=== PATIENT | female | born 1985 | race Caucasian/White ===

== ENCOUNTER → 2017-12-03 16:21 | Outpatient (CLI) | payer BC, SELFPAY ==
--- NOTE | 2017-12-03 16:24 | MR_ITS ---
MR knee LT wo con Ordering Physician: William Alex Patient Age: 32 years: Female HISTORY: ITS.REASON: LT KNEE/POSSIBLE MENISCUS TEAR Left knee pain 6 weeks patient stated and heard pop and felt pain at knee. Pain is medial side of patella. TECHNIQUE: Multiplanar multisequence imaging performed on 15 T jacqueline MR COMPARISON :Plain films of the , left knee 11/18/2017 FINDINGS Medial meniscal tear. Linear high signal tear passes through posterior horn & continues to the mid body of medial meniscus. This horizontal oblique tear mainly extends to the inferior meniscal surface just adjacent to the free margin as seen best on sagittal image 7 at the posterior horn.. This linear tear then extends to the base of the posterior horn medial meniscus seen on this image.. No displaced meniscus or meniscal fragment is seen.. The anterior horn medial meniscus appears intact. The medial compartment is fairly well maintained. Tiny area of increased signal at the medial margin of the medial tibial plateau with perhaps some scant chondral thinning here. Equivocal. The lateral meniscus is intact. No tear. The cartilage at the lateral compartment is fairly well maintained with only questionable slight thinning femoral condyle just superior to the anterior horn Patellofemoral joint cartilage well-maintained there may be some subtle chondral edema questioned along the medial aspect of patellar cartilage but this is equivocal. Unimpressive. . Normal patellofemoral relationships. Kxtos-rm-tvysrixe joint effusion most evident at suprapatellar bursa. The ACL and PCL are intact. The quadriceps tendon and patellar tendon intact. Medial and lateral collateral ligaments intact. IMPRESSION: Medial meniscal tear is the primary finding & abnormality Small to moderate joint effusion Question perhaps very Minor chondral edema/contusion at medial patella. Questionable feature
== END ==
PROVIDERS: Family Provider Family Medicine; PCP Emergency Medicine; Visit Provider Orthopaedic Surgery Adult Reconstructive Orthopaedic Surgery
DX: M25.562 Pain in left knee (principal)
CPT/HCPCS: 73721

== ENCOUNTER → 2018-02-01 13:41 | Outpatient (REF) | payer BC, SELFPAY ==
[2018-02-02 18:12] LABS: Measles Antibodies, IgG >300.0 AU/mL (Immune >29.9); Mumps Abs, IgG 82.5 AU/mL (Immune >10.9); Rubella Antibodies, IgG 8.49 index (Immune >0.99); Varicella Zoster IgG 1495 index (Immune >165)
[2018-02-03 18:29] LABS: Hep B Surface Ab, Qual Non Reactive (.)
[2018-02-05 09:02] LABS: Varicella-Zoster Ab, IgM <0.91 index (0.00-0.90)
== END ==
LOC: LAB 13:41
PROVIDERS: Visit Provider Emergency Medicine
DX: Z01.84 Encounter for antibody response examination (principal)
CPT/HCPCS: 86706; 86735; 86762; 86765; 86787

== ENCOUNTER → 2019-03-28 13:46 | Outpatient (CLI) | payer BC, SELFPAY | PROVIDERS: Visit Provider Nurse Practitioner Family | DX: R35.0 Frequency of micturition (principal); R82.90 Unspecified abnormal findings in urine | CPT/HCPCS: 87086; 87088; 87186 ==

== ENCOUNTER → 2020-02-05 13:59 | Outpatient (CLI) | payer BC, SELFPAY | PROVIDERS: Visit Provider Physician Assistant | DX: R30.9 Painful micturition, unspecified (principal) | CPT/HCPCS: 87086; 87088; 87186 ==

== ENCOUNTER 2020-03-29 19:41 | Emergency (ER) | payer BC, SELFPAY ==
[2020-03-29 19:58] VITALS: BP 125/91; PULSE 76; RESP 19; TEMP 36.8; O2SAT 100; BMI 22.6
[2020-03-29 20:08] LABS: Apearance,Urine Clear (Clear); Blood, Urine 3+ (Negative); Color,Urine Dark Yellow (Yellow); Glucose,Urine (UA) Negative (Negative); Ketones,Urine Negative (Negative); PH,Urine 5.5 (5.0-8.5); Protein,Urine 1+ (Negative); Specific Gravity, Urine 1.005 (1.005-1.030)
[2020-03-29 20:09] LABS: Bilirubin,Urine Negative (Negative); UTC Leukocyte Esterase,Urine 3+ (Negative); UTC Nitrate,Urine Negative (Negative); Urobilinogen,Urine 0.2 EU/dl (0.2)
[2020-03-29 20:30] VITALS: BP 125/91; PULSE 76; RESP 19; TEMP 36.8; O2SAT 100
--- NOTE | 2020-03-29 20:35 | HMH.EDUTC ---
[facility] [place] Impression: UTI (urinary tract infection) Qualifiers: Urinary tract infection type: site unspecified Hematuria presence: with hematuria Qualified Code(s): N39.0 - Urinary tract infection, site not specified Disposition: Home, Self-Care Condition on Discharge: Good Instructions: Urinary Tract Infection Additional Instructions: Drink plenty of fluids. Take tylenol or ibuprofen for pain or fever. Take the medications as directed. Follow up with your regular doctor. GO TO THE ER FOR ANY WORSENING SYMPTOMS The pyridium will make your urine turn orange, this is an expected side effect. It will stain your clothes if it comes into contact with them. Prescriptions: Ondansetron [Zofran 4mg ODT] 4 mg PO Q8HP PRN #10 tab.rapdis PRN Reason: Nausea [facility] Sulfamethoxazole/Trimethoprim [Bactrim DS tablet] 1 each PO BID 7 Days #14 tab Transmission Status: Received by [facility] Phenazopyridine HCl [Pyridium 200mg Tablet] 200 pow PO TID #6 tab Transmission Status: Received by [facility] Referrals: Michael Hernandez MD [Primary Care Provider] - Time of Disposition: 20:39 Medical Decision Making - Medical Records Medical records reviewed: No: I reviewed the patient's medical records. - Mario Inquiry Pt receiving controlled substance: No Vital Signs: 03/29/20 19:58 03/29/20 20:30 Temperature 98.2 F 98.2 F Temperature Source Oral Pulse Rate 76 Pulse Rate [Right Brachial] 76 Respiratory Rate 19 19 Blood Pressure 125/91 H Blood Pressure [Right Arm] 125/91 H Blood Pressure Mean [Right Arm] 102 Blood Pressure Source [Right Arm] Automatic Cuff Blood Pressure Position [Right Arm] Sitting 02 Sat by Pulse Oximetry 100 Oxygen Delivery Method Room Air - Lab Data Lab results reviewed: Yes: I reviewed the patient's lab results. Lab Results 03/29/20 19:57: Urine Color Dark yellow, Urine Appearance Clear, Urine pH 5.5, Ur Specific Hopkins 1.005, Urine Protein 1+, Urine Glucose (UA) Negative, Urine Ketones Negative, Urine Blood 3+, Urine Nitrate Negative, Urine Bilirubin Negative, Urine Urobilinogen 0.2, Ur Leukocyte Esterase 3+ A Orders (Tests/Meds): ED MEDICATIONS Discontinued Medications Generic Name Dose Route Start Last Admin Trade Name Freq PRN Reason Stop Dose Admin Ondansetron HCl 4 mg 03/29/20 20:38 03/29/20 20:47 Zofran 4mg Odt SL 03/29/20 20:39 4 mg ONCE ONE Administration Trimethoprim/Sulfamethoxazole 1 each 03/29/20 20:38 03/29/20 20:46 Bactrim Ds Tablet PO 03/29/20 20:39 1 each ONCE ONE Administration Protocol ORDERS Category Date Time Status Urine Culture Stat Micro 03/29/20 19:[address] [facility] [place] - General Stated complaint: Possible UTI Time Seen by Provider: 03/29/20 20:00 Mode of Arrival: Ambulatory Source of Information: Patient Limitations: No Limitations Description of Symptoms (Recalled from Triage Doc. by RN): PATIENT C/O RIGHT FLANK PAIN, FREQUENT URINATION, AND HEMATURIA SINCE SUNDAY HEENT Symptoms (Recalled from RN notes): No Resp Symptoms (Recalled from RN notes): No Skin Symptoms (Recalled from RN notes): No MS Symptoms (Recalled from RN notes): No Functional Status (Recalled from RN notes): WNL - History of Present Illness Provider Complaint: She c/o dysuria and low back pain for 1 day. - Related Data Home Medications Medication Instructions Recorded Confirmed levonorgestrel 20 mcg/24 hours (5 INTRAUTERI each 01/21/19 02/05/20 yrs) 52 mg intrauterine device Previous Rx's Medication Instructions Recorded ciprofloxacin HCl 500 mg tablet 500 mg PO BID 5 Days #10 tab 02/05/20 Ondansetron [Zofran 4mg ODT] 4 mg PO Q8HP PRN #10 tab.rapdis 03/29/20 Phenazopyridine HCl [Pyridium 200 pow PO TID #6 tab 03/29/20 200mg Tablet] Sulfamethoxazole/Trimethoprim 1 each PO BID 7 Days #14 tab 03/29
== END 2020-03-29 20:50 | disposition home or self-care (01) ==
PROVIDERS: Emergency Provider Nurse Practitioner Family; PCP Emergency Medicine
DX: N30.01 Acute cystitis with hematuria (principal); F33.1 Major depressive disorder, recurrent, moderate; Z88.0 Allergy status to penicillin
CPT/HCPCS: 81003; 87086; 87088; 87186; 99201

== ENCOUNTER 2020-04-06 12:56 | Emergency (ER) | payer BC, SELFPAY ==
[2020-04-06 13:09] VITALS: BP 141/88; PULSE 76; RESP 19; TEMP 36.8; O2SAT 99; BMI 22.6
--- NOTE | 2020-04-06 13:21 | HMH.EDUTC ---
[facility] [place]: Muscle spasms of neck Disposition: Home, Self-Care Condition on Discharge: Good Instructions: DI for Muscle Spasm, Cyclobenzaprine, Etodolac Additional Instructions: Make sure that you are drinking plenty of water to flush out kidneys *Take medication as prescribed *Etodolac karla 6 hours with meal as needed for pain/inflammation *Not additional anti-inflammatory like motrin, aleve, advil with the above amount of Etodolac You can still take Tylenol every 4 hours as needed if you need something else for pain *Ice 20 minutes every 2 hours for the first 48 hours after the initial injury followed by moist heat every 20 minutes 3-4 times a day to affected area *Muscle relaxer every 8 hours as needed for muscle spasms but remember, it WILL cause drowsiness You cannot take it and drive, operate machinery or care for small children. *Keep this area active, no movement leads to more stiffness, However take it easy and avoid heavy lifting pushing or pulling *Follow up with you family doctor if no improvement for further treatment Prescriptions: Etodolac [Etodolac 200mg Cap*] 200 mg PO Q6H PRN #20 cap PRN Reason: Moderate Pain Transmission Status: Pending to [facility] Cyclobenzaprine HCl [Flexeril 10mg tablet] 10 mg PO TID PRN #15 tab PRN Reason: Muscle Spasm Transmission Status: Pending to [facility] Referrals: Michael Hernandez MD [Primary Care Provider] - As needed Time of Disposition: 13:27 Medical Decision Making - Mario Inquiry Pt receiving controlled substance: No Mario was queried for this patient: No Vital Signs: 04/06/20 13:09 Temperature 98.2 F Temperature Source Oral Pulse Rate [Right Brachial] 76 Respiratory Rate 19 Blood Pressure [Left Arm] 141/88 H Blood Pressure Mean [Left Arm] 105 Blood Pressure Source [Left Arm] Automatic Cuff Blood Pressure Position [Left Arm] Sitting 02 Sat by Pulse Oximetry 99 Oxygen Delivery Method Room Air - Lab Data Lab results reviewed: Yes: I reviewed the patient's lab results. [facility] [place] - General Stated complaint: uti neck pain Time Seen by Provider: 04/06/20 13:21 Mode of Arrival: Ambulatory Source of Information: Patient Limitations: No Limitations Description of Symptoms (Recalled from Triage Doc. by RN): PATIENT C/O NECK PAIN X 4 DAYS. ALSO STATES SHE WAS RECENTLY TREATED FOR A UTI WITH BACTRIM, HOWEVER SHE REPORTS CONTINUING PRESSURE WITH URINATION. HEENT Symptoms (Recalled from RN notes): No Resp Symptoms (Recalled from RN notes): No Skin Symptoms (Recalled from RN notes): No MS Symptoms (Recalled from RN notes): Yes Functional Status (Recalled from RN notes): WNL - History of Present Illness Provider Complaint: Patient states that she just finished medication for UTI and she is still having pressure at times when she urinates and wanted to have her urine rechecked States that also she has been having muscle spasms in her neck area from bending over and studing and now is unable to move head well - Related Data Home Medications Medication Instructions Recorded Confirmed levonorgestrel 20 mcg/24 hours (5 INTRAUTERI each 01/21/19 02/05/20 yrs) 52 mg intrauterine device Previous Rx's Medication Instructions Recorded ciprofloxacin HCl 500 mg tablet 500 mg PO BID 5 Days #10 tab 02/05/20 Ondansetron [Zofran 4mg ODT] 4 mg PO Q8HP PRN #10 tab.rapdis 03/29/20 Phenazopyridine HCl [Pyridium 200 pow PO TID #6 tab 03/29/20 200mg Tablet] Sulfamethoxazole/Trimethoprim 1 each PO BID 7 Days #14 tab 03/29/20 [Bactrim DS tablet] Cyclobenzaprine HCl [Flexeril 10mg 10 mg PO TID PRN #15 tab 04/06/20 tablet] Etodolac [Etodolac 200mg Cap*] 200 mg PO Q6H PRN #20 cap 04/06/20 Allergies Allergy/AdvReac Type Severity Reaction Status Date / Time hydroxyzine [From Atarax] Allergy Intermediate I-HIVES Verified 02/05/20 10:16 penicillin G [PENICILLIN G] Allergy Intermediate I-HIVES Verifie
[2020-04-06 13:30] LABS: UTC Pregnancy Test, Urine Negative (Negative)
[2020-04-06 13:30] LABS: Apearance,Urine Clear (Clear); Color,Urine Yellow (Yellow); PH,Urine 6.5 (5.0-8.5)
[2020-04-06 13:31] LABS: Bilirubin,Urine Negative (Negative); Blood, Urine Negative (Negative); Glucose,Urine (UA) Negative (Negative); Ketones,Urine Negative (Negative); Protein,Urine Negative (Negative); UTC Leukocyte Esterase,Urine Negative (Negative); UTC Nitrate,Urine Negative (Negative); Urobilinogen,Urine 0.2 EU/dl (0.2)
[2020-04-06 13:47] VITALS: BP 141/88; PULSE 76; RESP 19; TEMP 36.8; O2SAT 99
== END 2020-04-06 13:50 | disposition home or self-care (01) ==
PROVIDERS: Emergency Provider Nurse Practitioner; PCP Emergency Medicine
DX: M62.838 Other muscle spasm (principal); M54.2 Cervicalgia; F33.1 Major depressive disorder, recurrent, moderate; Z88.0 Allergy status to penicillin; Z88.8 Allergy status to other drugs, medicaments and biological substances
CPT/HCPCS: 81003; 81025; 96372; 99202

== ENCOUNTER → 2020-05-17 19:03 | Outpatient (CLI) | payer OTHER, SELFPAY | PROVIDERS: PCP Physician Assistant; Visit Provider Physician Assistant | DX: Z03.818 Encounter for observation for suspected exposure to other biological agents ruled out (principal) | CPT/HCPCS: U0003 ==

== ENCOUNTER 2020-06-21 06:46 | Emergency (ER) | payer OTHER, SELFPAY ==
--- NOTE | 2020-06-21 06:41 | ECG_ITS ---
APPROVED REPORT Exam: Resting ECG HR:75 bpm ECG Measurements Heart Rate 75 AXES NM 120 P 73 QRSd 80 QRS -75 QT 408 T 56 QTc 455 Conclusion Normal sinus rhythm Left axis deviation Abnormal ECG Electronically signed by : Bandar Combs, 06/21/2020 21:07:18
[2020-06-21 06:46] VITALS: BP 111/77; PULSE 93; RESP 16; TEMP 36.7; O2SAT 100; BMI 24.2
--- NOTE | 2020-06-21 06:51 | HMH.EDSYNC ---
ED Disposition Clinical Impression: Near syncope Urinary tract infection Qualifiers: Encounter type: initial encounter Disposition: Still a Patient Condition on Discharge: Undetermined Instructions: DI for Syncope in Adults (Fainting), Urinary Tract Infection Prescriptions: Cefdinir [Omnicef 300mg Capsule] 300 mg PO BID #20 cap Prescription Printed Referrals: PCP,No [Primary Care Provider] - - Critical Care Critical Care Time: No Attestation: On , the high probability of a clinically significant, sudden or life threatening deterioration of the following system(s) required my full and direct attention, intervention and personal management. The time I documented below is in addition to time spent performing reported procedures but includes the following listed in this critical care notation. Medical Decision Making - Medical Records Medical records reviewed: Yes: I reviewed the patient's medical records. - Mario Inquiry Pt receiving controlled substance: No Vital Signs: 06/21/20 06:46 06/21/20 07:00 06/21/20 07:30 Temperature 98.1 F Temperature Source Oral Pulse Rate [Left Radial] 93 H 60 61 Respiratory Rate 16 13 10 L Blood Pressure [Right Arm] 111/77 102/76 L 99/77 L Blood Pressure Mean [Right Arm] 88 84 84 Blood Pressure Source [Right Arm] Automatic Cuff Automatic Cuff Blood Pressure Position [Right Arm] Supine Sitting 02 Sat by Pulse Oximetry 100 100 100 Oxygen Delivery Method Room Air Room Air Room Air 06/21/20 07:45 Temperature Temperature Source Pulse Rate [Left Radial] 93 H Respiratory Rate 15 Blood Pressure [Right Arm] 114/81 Blood Pressure Mean [Right Arm] 92 Blood Pressure Source [Right Arm] Automatic Cuff Blood Pressure Position [Right Arm] Sitting 02 Sat by Pulse Oximetry 100 Oxygen Delivery Method Room Air - Lab Data Lab Results 06/21/20 06:45: WBC 8.9, RBC 5.20, Hgb 16.0, Hct 46.5, MCV 89.5, MCH 30.8, MCHC 34.5, RDW 13.0, Plt Count 368, MPV 9.8, Neut % (Auto) 56.7, Lymph % (Auto) 32.9, Lucas % (Auto) 6.5, Eos % (Auto) 3.4, Baso % (Auto) 0.5, Neut # (Auto) 5.0, Lymph # (Auto) 2.9, Lucas # (Auto) 0.6, Eos # (Auto) 0.3, Baso # (Auto) 0.1 06/21/20 06:45: Sodium 137, Potassium 2.9 L*, Chloride 102, Carbon Dioxide 24, Anion Gap Not Reportable, BUN 13, Creatinine 0.90, Estimated Creat Clear 96, Estimated GFR 73, Est GFR ( Amer) 88, Glucose 127 H, Calcium 9.4, Total Bilirubin 1.2, AST 25, ALT 20, Alkaline Phosphatase 49, Total Protein 7.3, Albumin 4.6, Globulin 2.7, Albumin/Globulin Ratio 1.7 06/21/20 07:15: Urine Color Dk yellow, Urine Appearance Sl cloudy, Urine pH 6.0, Ur Specific Jermyn >= 1.030, Urine Protein Trace, Urine Glucose (UA) Negative, Urine Ketones Trace, Urine Blood Negative, Urine Nitrate Positive, Urine Bilirubin Negative, Urine Urobilinogen 1.0, Ur Leukocyte Esterase Negative, Urine RBC Occasional, Urine WBC 3-5, Ur Squamous Epith Cells 3-5, Urine Bacteria Trace 06/21/20 07:15: Urine HCG, Qual Negative Result diagrams: 06/21/20 06:45 06/21/20 06:45 Orders (Tests/Meds): ED MEDICATIONS Generic Name Dose Route Start Last Admin Trade Name Freq PRN Reason Stop Dose Admin Lactated Ringer's 1,000 mls @ 999 mls/hr 06/21/20 07:00 06/21/20 06:59 Lactated Ringer's 1000 Ml Bag IV 06/21/20 08:00 999 mls/hr .Q1H1M DIANE Administration Discontinued Medications Generic Name Dose Route Start Last Admin Trade Name Freq PRN Reason Stop Dose Admin Ibuprofen 400 mg 06/21/20 06:58 06/21/20 07:02 Ibuprofen 400 Mg Tablet PO 06/21/20 06:59 400 mg ONCE ONE Administration Ondansetron HCl 4 mg 06/21/20 06:56 06/21/20 06:58 Ondansetron 4mg/2ml Vial IV 06/21/20 06:57 4 mg ONCE ONE Administration Potassium Chloride 40 meq 06/21/20 07:27 06/21/20 07:34 Potassium Chloride 20meq Tab PO 06/21/20 07:28 40 meq ONCE ONE Administration ORDERS Category Date Time Status Chest XR -- portable [XR chest portable] Stat Exa
--- NOTE | 2020-06-21 06:55 | XR_ITS ---
PROCEDURE: XR CHEST PORTABLE CLINICAL HISTORY: syncope Shortness of breath, syncope COMPARISON: No exams were available for comparison FINDINGS: The cardiomediastinal silhouette and pulmonary vascularity are within normal limits. The lungs are clear without infiltrates, suspicious nodules, or pleural effusions. Mild upper thoracic scoliosis convex left and lower thoracic scoliosis convex right. IMPRESSION: No acute findings. Dictated by: Tevin Lopes MD 06/21/2020 08:38 Tevin Lopes MD in [place] 06/21/2020 08:38
--- NOTE | 2020-06-21 06:56 | US_ITS ---
PROCEDURE: US TRANSVAGINAL CLINICAL INDICATION: ovarian torsion evaluation, abdominal pain, pelvic pain, syncope COMPARISON: No exams were available for comparison FINDINGS: UTERUS: 9cm x 6cmx 5cm with a combined endometrial thickness of 4.9mm LEFT OVARY: 4aqu6exp3.5cm with a volume of 18.4ml. RIGHT OVARY: [id number] with a volume of 15.7ml. There is an IUD in place which appears in satisfactory position. There are multiple bilateral ovarian follicles. There is bilateral ovarian blood flow. No cul-de-sac fluid. Suspected 2 cm left ovarian hemorrhagic cyst IMPRESSION: Bilateral ovarian blood flow. No evidence of torsion. 2 cm hemorrhagic left ovarian cyst IUD in place. Dictated by: Tevin Lopes MD 06/21/2020 09:11 Tevin Lopes MD in [place] 06/21/2020 09:11
[2020-06-21 07:00] VITALS: BP 102/76; PULSE 60; RESP 13; O2SAT 100
[2020-06-21 07:08] LABS: Basophils # 0.1 K/mm3 (0-0.2); Basophils % 0.5 % (0.1-2.0); Eosinophils # 0.3 K/mm3 (0.0-0.4); Eosinophils % 3.4 % (0.1-12.0); Hematocrit 46.5 % (37.0-47.0); Lymphocytes # 2.9 K/mm3 (0.7-4.5); Lymphocytes % 32.9 % (10-50); Mean Corpuscular HGB Conc 34.5 g/dL (31.8-35.4); Mean Corpuscular Hemoglobin 30.8 pg (27.0-31.2); Mean Corpuscular Volume 89.5 fl (81-99); Mean Platelet Volume 9.8 fl (7.4-10.4); Monocytes # 0.6 K/mm3 (0.1-1.0); Monocytes % 6.5 % (1.7-9.3); Neutrophils % 56.7 % (37.0-80.0); Platelet Count 368 K/mm3 (142-424); White Blood Count 8.9 K/mm3 (4.8-10.8)
[2020-06-21 07:17] LABS: Chloride 102 mmol/L (98-107); Sodium 137 mmol/L (136-145)
[2020-06-21 07:20] LABS: Alanine Aminotransferase 20 U/L (12-78); Albumin Level 4.6 g/dl (3.5-5.0); Alkaline Phosphatase 49 U/L (38-126); Aspartate Amino Transferase 25 U/L (14-36); Bilirubin,Total 1.2 mg/dl (0.2-1.3); Blood Urea Nitrogen 13 mg/dl (7-17); Carbon Dioxide 24 mmol/L (22.0-30.0); Creatinine Clearance Estimated 96 mL/min (50-200); Estimated Glomerular Filt Rate 73 ml/min (>60); GFR (African American) 88 ML/MIN (>60)
[2020-06-21 07:21] LABS: Albumin/Globulin Ratio 1.7 (1.1-1.8); Calcium 9.4 mg/dl (8.4-10.2); Globulin 2.7 g/dL (1.3-3.2); Glucose 127 mg/dl (74-100); Potassium 2.9 mmoL/L (3.5-5.1); Total Protein,Serum 7.3 g/dl (6.3-8.2)
--- NOTE | 2020-06-21 07:21 | PC.NURSE ---
notified ER of critical potassium
[2020-06-21 07:27] LABS: Microscopic, Urine URINE MICROSCOPIC (MICROSCOPIC)
[2020-06-21 07:30] VITALS: BP 99/77; PULSE 61; RESP 10; O2SAT 100
[2020-06-21 07:34] LABS: Appearance,Urine SL CLOUDY (Clear); Blood, Urine Negative (Negative); Color,Urine DK YELLOW (Yellow); Glucose,Urine (UA) Negative (Negative); Ketones,Urine TRACE (Negative); Leukocyte Esterase,Urine Negative (Negative); Nitrate,Urine POSITIVE (Negative); Protein,Urine TRACE (Negative); Specific Gravity, Urine >= 1.030 (1.005-1.030)
[2020-06-21 07:44] LABS: Bilirubin,Urine Negative (Negative); Urine Pregnancy, HCG Qual. Negative (Negative)
[2020-06-21 07:45] VITALS: BP 114/81; PULSE 93; RESP 15; O2SAT 100
--- NOTE | 2020-06-21 07:46 | PC.NURSE ---
pt going to radiology
[2020-06-21 07:54] LABS: Bacteria,Urine Trace /lpf; RBC,Urine Occasional #/hpf (0-3)
--- NOTE | 2020-06-21 08:08 | PC.NURSE ---
pt back from radiology
[2020-06-21 08:09] VITALS: BP 120/76; PULSE 75; RESP 19; O2SAT 99
[2020-06-21 08:30] VITALS: BP 106/68; BP 120/62; PULSE 69; PULSE 72; RESP 15; RESP 16; TEMP 36.6; O2SAT 100; O2SAT 98
== END 2020-06-21 08:35 | disposition still patient (30) ==
PROVIDERS: Emergency Provider Student in an Organized Health Care Education/Training Program
DX: R55 Syncope and collapse (principal); N39.0 Urinary tract infection, site not specified; F33.1 Major depressive disorder, recurrent, moderate; Z88.0 Allergy status to penicillin
CPT/HCPCS: 71045; 76830; 80053; 81001; 81025; 85025; 93005; 96365; 96375; 99284; J2405

== ENCOUNTER 2020-12-06 14:34 | Emergency (ER) | payer OTHER, SELFPAY ==
[2020-12-06 15:03] VITALS: BP 129/75; PULSE 85; RESP 16; TEMP 36.2; O2SAT 96; BMI 22.2
--- NOTE | 2020-12-06 15:15 | HMH.EDUTC ---
[facility] [place] Clinical Impression: Acute bronchitis Qualifiers: Bronchitis organism: unspecified organism Qualified Code(s): J20.9 - Acute bronchitis, unspecified Disposition: Home, Self-Care Condition on Discharge: Good Instructions: Acute Bronchitis, DI for Acute Bronchitis Additional Instructions: Drink plenty of fluids. Take tylenol for pain or fever. Return if you begin to have difficulty breathing. Follow up with your regular doctor. GO TO THE ER FOR ANY WORSENING SYMPTOMS Prescriptions: Promethazine/Dextromethorphan [Promethazine-Dm Syrup] 5 ml PO Q6HP PRN #240 syrup PRN Reason: Cough Transmission Status: Received by [facility] predniSONE [Prednisone 20mg Tab] 20 mg PO BID 4 Days #8 tab Transmission Status: Received by [facility] Azithromycin [Z-Bridger 250mg Tab*] 250 mg PO UD DOSE PK #6 tab Transmission Status: Received by [facility] Referrals: Michael Hernandez MD [Primary Care Provider] - Forms: Work/School Release Time of Disposition: 15:27 Medical Decision Making - Medical Records Medical records reviewed: No: I reviewed the patient's medical records. - Mario Inquiry Pt receiving controlled substance: No Vital Signs: 12/06/20 15:03 12/06/20 15:32 Temperature 97.2 F L 97.3 F L Temperature Source Tympanic Tympanic Pulse Rate 85 Pulse Rate [Right] 85 Respiratory Rate 16 23 Blood Pressure 131/78 Blood Pressure [Right Arm] 129/75 Blood Pressure Mean [Right Arm] 93 Blood Pressure Source [Right Arm] Automatic Cuff Blood Pressure Position [Right Arm] Sitting 02 Sat by Pulse Oximetry 96 - Lab Data Lab Results 12/06/20 15:12: Strep Scn Rapid [facility] Negative Orders (Tests/Meds): ORDERS Category Date Time Status Strep Screen Confirmation Stat Micro 12/06/20 15:12 Received [facility] [place] HPI - General Stated complaint: congestion, fatigue Time Seen by Provider: 12/06/20 15:15 Mode of Arrival: Ambulatory Source of Information: Patient Limitations: No Limitations Description of Symptoms (Recalled from Triage Doc. by RN): pt c/o chest congestion, productive cough with green sputum, sore throat and fatigued. 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 pt does not want covid test. HEENT Symptoms (Recalled from RN notes): Yes (sore throat) Resp Symptoms (Recalled from RN notes): Yes (productive cough with green sputum.) Skin Symptoms (Recalled from RN notes): No MS Symptoms (Recalled from RN notes): No Functional Status (Recalled from RN notes): body aches and lethargy - History of Present Illness Provider Complaint: She states that she has had a sore throat and chest congestion for the past 2 days. She denies any fever/chills/body aches. She does not believe she has been exposed to covid. She does not want a covid test today. - Related Data Home Medications Medication Instructions Recorded Confirmed levonorgestrel 20 mcg/24 hours (6 INTRAUTERI each 01/21/19 09/13/20 yrs) 52 mg intrauterine device Previous Rx's Medication Instructions Recorded ondansetron 8 mg disintegrating 8 mg PO Q8H PRN 5 Days #20 tab 09/13/20 tablet Azithromycin [Z-Bridger 250mg Tab*] 250 mg PO UD DOSE PK #6 tab 12/06/20 Promethazine/Dextromethorphan 5 ml PO Q6HP PRN #240 syrup 12/06/20 [Promethazine-Dm Syrup] predniSONE [Prednisone 20mg 20 mg PO BID 4 Days #8 tab 12/06/20 Tab] Allergies Allergy/AdvReac Type Severity Reaction Status Date / Time hydroxyzine [From Atarax] Allergy Intermediate I-HIVES Verified 12/06/20 15:13 penicillin G [PENICILLIN G] Allergy Intermediate I-HIVES Verified 12/06/20 15:13 - Worker's Comp Is this a Worker's Comp case?: No [facility] History - Hepatitis A Screen Drug use history?: No High risk sexual behaviors?: No History of sexually transmitted infection?: No Currently employed?: No Childcare worker?: No Do you have indoor plumbing?: Yes Do you
[2020-12-06 15:31] LABS: UTC Strep Screen (Rapid) Negative (Negative)
[2020-12-06 15:32] VITALS: BP 131/78; PULSE 85; RESP 23; TEMP 36.3
== END 2020-12-06 15:33 | disposition home or self-care (01) ==
PROVIDERS: Emergency Provider Nurse Practitioner Family; PCP Emergency Medicine
DX: J20.9 Acute bronchitis, unspecified (principal)
CPT/HCPCS: 87880; 99202; G0463

== ENCOUNTER 2020-12-27 09:00 | Emergency (ER) | payer OTHER, SELFPAY ==
[2020-12-27 09:00] VITALS: BP 125/83; PULSE 89; RESP 19; TEMP 36.8; O2SAT 98; BMI 22.6
--- NOTE | 2020-12-27 09:05 | XR_ITS ---
PROCEDURE: XR KNEE RT 3V CLINICAL INDICATION: pain COMPARISON: CR [id number] XR knee LT 3V from 11/18/2017 FINDINGS: No fracture or dislocation. No lytic or blastic change. There is normal mineralization. The joint spaces are well-preserved. No significant degenerative/arthritic changes. No erosive changes evident. Other findings:None. IMPRESSION: No acute findings. Dictated by: Tevin Lopes MD 12/27/2020 10:12 Tevin Lopes MD in [place] 12/27/2020 10:12
--- NOTE | 2020-12-27 09:32 | HMH.EDUTC ---
[facility] [place] Clinical Impression: Knee strain Qualifiers: Encounter type: initial encounter Laterality: right Qualified Code(s): S86.911A - Strain of unspecified muscle(s) and tendon(s) at lower leg level, right leg, initial encounter Disposition: Home, Self-Care Condition on Discharge: Good Instructions: How to Use Crutches, How To Perform RICE (Rest, Ice, Compress, Elevate), DI for Knee Pain Additional Instructions: *weight bearing as tolerated, Use Crutches to help ambulate and keep weight off knee *RICE, Rest the extremity, Ice 15-20 minutes 3-4 times daily, Compress- wear the abiodun wrap as discussed as much as possible to help reduce swelling and pain, Elevate the extremity when at rest *Abiodun wrap/knee immobilizer is for support and help control swelling, use it except in the shower. Be sure that is not to tight but not to loose either *Elevate when resting *Ibuprofen every 6-8 hours as needed for pain an inflammation. If need something more can take Tylenol in between doses of Ibuprofen to help Immediately follow up with your family doctor for new or worsening of symptoms, or no noticeable improvement over the next 3-5 days Follow up with Dr Joiner in Orthopedics Call office for appointment Return if needed Referrals: Michael Hernandez MD [Primary Care Provider] - Susannah Joiner MD [Physician] - As needed (Call office for appointment) Time of Disposition: 10:18 Medical Decision Making - Mario Inquiry Pt receiving controlled substance: No Mario was queried for this patient: No Vital Signs: 12/27/20 09:00 12/27/20 09:56 Temperature 98.3 F 98.3 F Temperature Source Oral Pulse Rate 89 Pulse Rate [Right Brachial] 89 Respiratory Rate 19 19 Blood Pressure 125/83 Blood Pressure [Right Arm] 125/83 Blood Pressure Mean [Right Arm] 97 Blood Pressure Source [Right Arm] Automatic Cuff Blood Pressure Position [Right Arm] Sitting 02 Sat by Pulse Oximetry 98 Oxygen Delivery Method Room Air - Radiology Data #1 Image(s): Knee Image Reviewed: Yes I have reviewed radiologist's interpretation Preliminary Findings: No Fracture Seen Medical Decision Narrative: Upon placement of Knee immobilizer and crutches patient reports that she has knee immobilizer and crutches at home from previous knee injury and declined placement in the [facility] HPI - General Stated complaint: [id number] injured Rt knee Time Seen by Provider: 12/27/20 09:32 Mode of Arrival: Ambulatory Source of Information: Patient Limitations: No Limitations Description of Symptoms (Recalled from Triage Doc. by RN): PATIENT C/O RIGHT KNEE PAIN AFTER FALLING ON A [id number] YESTERDAY HEENT Symptoms (Recalled from RN notes): No Resp Symptoms (Recalled from RN notes): No Skin Symptoms (Recalled from RN notes): No MS Symptoms (Recalled from RN notes): Yes Functional Status (Recalled from RN notes): WNL - History of Present Illness Provider Complaint: Patient state that she was playing with her kids yesterday on the slip and slide when she went down she bent her legs back States that ever since she has been having pain in the back and on both sides of her right knee with majority of pain in outside of knee area States that she feels like she has pulled or torn something States that she has been able to walk on it but it is uncomfortable - Related Data Home Medications Medication Instructions Recorded Confirmed No Known Home Medications 12/27/20 12/27/20 Allergies Allergy/AdvReac Type Severity Reaction Status Date / Time hydroxyzine [From Atarax] Allergy Intermediate I-HIVES Verified 12/06/20 15:13 penicillin G [PENICILLIN G] Allergy Intermediate I-HIVES Verified 12/06/20 15:13 - Worker's Comp Is this a Worker's Comp case?: No [facility] History - Hepatitis A Screen Drug use history?: No High risk sexual behaviors?: No History of sexually transmitted infection?: No Currently employed?: No Childcare worker?: No Do you have
[2020-12-27 09:56] VITALS: BP 125/83; PULSE 89; RESP 19; TEMP 36.8; O2SAT 98
== END 2020-12-27 10:22 | disposition home or self-care (01) ==
PROVIDERS: Emergency Provider Nurse Practitioner; PCP Emergency Medicine
DX: S86.911A Strain of unspecified muscle(s) and tendon(s) at lower leg level, right leg, initial encounter (principal); W01.0XXA Fall on same level from slipping, tripping and stumbling without subsequent striking against object, initial encounter; Y92.017 Garden or yard in single-family (private) house as the place of occurrence of the external cause; Z88.0 Allergy status to penicillin
CPT/HCPCS: 73562; 99202; G0463

== ENCOUNTER → 2021-01-07 15:01 | Outpatient (CLI) | payer OTHER, SELFPAY ==
--- NOTE | 2021-01-07 15:01 | MR_ITS ---
PROCEDURE: MR KNEE RT WO CON CLINICAL INDICATION: evalaute for mensical tear Medial and lateral knee pain with swelling COMPARISON: CR XR KNEE RT 3V from 12/27/2020 TECHNIQUE: Routine multiplanar multi echo sequences are performed without gadolinium enhancement. FINDINGS: Cruciate ligaments, collateral ligaments, patellar tendon, and quadriceps tendon are intact. The patellar cartilage is preserved. There is a nondisplaced horizontal tear involving the posterior horn of the medial meniscus. This extends to the posterior and medial free edge of the meniscus with questionable extension to the tibial articular surface on 1 image. There is decreased T1 and increased T2 signal involving the proximal tibia laterally and posteriorly. There is a thin linear transverse area of decreased T1 and decreased T2 signal involving the posterior aspect of the proximal tibia laterally at this region of edema suggesting a nondisplaced fracture. IMPRESSION: 1. Horizontal tear posterior horn medial meniscus 2. Bone bruise with small transverse fracture of the proximal tibia posteriorly and laterally. Dictated by: Tevin Lopes MD 01/10/2021 08:37 Tevin Lopes MD in [place] 01/10/2021 08:37
== END ==
PROVIDERS: PCP Emergency Medicine; Visit Provider Orthopaedic Surgery
DX: M25.561 Pain in right knee (principal)
CPT/HCPCS: 73721

== ENCOUNTER → 2021-02-01 23:37 | Outpatient (CLI) | payer OTHER, SELFPAY | PROVIDERS: Visit Provider Orthopaedic Surgery | DX: Z01.818 Encounter for other preprocedural examination (principal) ==

== ENCOUNTER 2021-02-03 07:07 | Day surgery (SDC) | payer OTHER, SELFPAY ==
[2021-01-31 14:48] VITALS: BMI 22.6
[2021-02-03] VITALS (15 sets, daily range): BP systolic 100–127; BP diastolic 54–85; PULSE 67–90; RESP 12–18; TEMP 36.2–43; O2SAT 95–100
--- NOTE | 2021-02-03 09:13 | HMH.ANESCL ---
[facility] Anesthesia Checklist - Patient Identification Patient Identification: Arm Band - Structural Data Admitted From: Home Planned Operative Procedure/s: Right Knee Arthroscopy Consent for Planned Operative Procedure(s) Verified: Yes Verified Documents: Surgical Consent, History and Physical - NPO Status Verified Time NPO: 00:00 - Additional verifications Anesthesia Reactions: No Hx Blood Transfusions: No Blood Transfusion Reaction: No - Airway Assessment C-Spine Mobility Assessed: Yes (mp2) TMJ Mobility Assessed: Yes Dentition: Good Dentition - Neurological Assessment Level of Consciousness: Awake, Alert - Anesthesia Plan Anesthesia Risk discussed: Yes Anesthesia Plan: Verified ASA Class: I Anesthesia Type: General [facility] History I have reviewed the patient's past medical history: Yes Medical History: Reports:: Depression Denies:: Cancer, Diabetes Mellitus Type 1, Diabetes Mellitus Type 2, Internal Pacemaker, MRSA, Seizures *Have you ever received a pneumonia vaccine?: No *Have you received a flu vaccine this season?: Yes Other Medical History: Denies: Blood Transfusion Reaction Anesthesia experience/problems:: nac Laterality Cases: Left: Arthroscopy Knee Other Surgeries: Yes: Appendectomy, , Other (Left knee arthroscopy). No: Pacemaker Amputation: No Fractures: No - *Social History Last grade of school completed: Advanced degree Smoking Status: Never smoker Alcohol Intake: never Alcohol Intake Frequency:: a few times a month Substance Use Type: denies use *Occupational Status:: employed Housing: house Household Members: spouse, family, children *Travel in the last 8 weeks: None - Psychiatric History Pschychiatric History:: Reports:: Depression Family Hx:: No significant family history
--- NOTE | 2021-02-03 11:46 | HMH.ANESI ---
[facility] Anesthesia Record Part I Intake, IV Amount: 1,500 Estimated blood loss (mL): 0 Urine output (mL): 0 Blood Pressure: 122/73 SaO2: 95 Pulse Rate: 82 Respiratory Rate: 12 Temperature: 98.4 F Patient is:: Awake, Stable Stable to PACU at:: 11:45
--- NOTE | 2021-02-03 13:38 | PC.NURSE ---
1250-detailed report given to FIDELINA Ackerman 1254-pt transported to post op via stretcher w/deric rails up and left in care of FIDELINA Ackerman with bed locked in lowest position, vss, pt stable
--- NOTE | 2021-02-03 15:01 | HMH.OPNOTE ---
Date of procedure: 02/03/21 Pre-op Diagnosis:: Medial meniscal tear, right knee Post-op Diagnosis:: Same Procedure performed:: 1. Examination of right knee under anesthesia 2. Partial medial meniscectomy, right knee Surgeon:: Saurabh Garcia MD MILITARY COMMUNICATIONS SPECIALIST:: Delonte Buckley Anesthesia: LMA Estimated blood loss (mL): 0 Clinical Note:: The patient is a 35-year-old female with chronic right knee pain following an injury few weeks ago. Her symptoms are unresponsive to conservative management and MRI scan of the knee confirmed a medial meniscal tear. Clinically her symptoms are consistent with the above diagnosis. Resection of the torn medial meniscus, chondroplasty/debridement is indicated to relieve the pain and improve function of the knee. Please refer to my office notes for full details. Operative findings:: Examination of the right knee under anesthesia, showed a stable knee joint. There is small amount of knee joint effusion. Knee range of motion is from 0-140? of flexion. Operative findings showed grade 2 degenerative changes over the medial femoral condyle. The patellofemoral and lateral compartments are well preserved. The medial meniscus had a complex degenerative tear involving the body and posterior horn. The anterior cruciate ligament and posterior cruciate ligaments were intact. No loose bodies were noted. Operative note:: On the day of the procedure the patient was met in the preoperative area and positively identified. A physical examination was performed and documented. The operative site and side was marked and initialed by me. I again discussed the diagnosis, management options including both nonsurgical and surgical. I discussed the proposed surgical procedure, risks and benefits and alternatives in detail. Patient clearly indicated that she would like to have resection of the torn medial meniscus as opposed to any attempted repair of the meniscus. The complications discussed include but are not limited to infection, injury to nerves and blood vessels, injury to the ligaments and tendons, knee stiffness, arthrofibrosis, incomplete relief, incomplete functional recovery, DVT, PE, CRPS, complications related to anesthesia including heart attack, stroke and even . I have also discussed about the likely need for further surgery in future. I told her that there were no guarantees with surgery; she could be no better or even worse. We also discussed the postoperative recovery and rehabilitation protocol. I believe the patient to be well informed with regard to the proposed surgery. I told her that it would take few months for full recovery of the knee after surgery. She expressed a full understanding and wished to proceed with the planned surgery. Patient understood the risks, agreed to proceed with surgery and no guarantees or assurances were given or implied. Patient was brought to the operating room and placed supine on the operating table. All the bony prominences were appropriately padded. A general anesthesia was administered by the guyline operator. A well-padded tourniquet cuff was placed over the right upper thigh. Examination of the right knee under anesthesia was performed. A small amount of knee effusion was noted. Knee range of motion was 0-140 degrees of flexion. Knee joint is noted to be ligamentously stable. The right knee was then prepped and draped in the usual sterile fashion. A preprocedure timeout was performed as per protocol. Administration of prophylactic IV antibiotics was confirmed with the guyline operator. The arthroscopic portals were marked on the skin. The limb was exsanguinated with Esmarch bandage and the tourniquet was inflated to 300 mmHg- please refer to the nursing notes for tourniquet time. I then made an anterolateral arthroscopic portal and introduced the arthroscope and performed the knee examination. I then created an anteromedial portal under direct vision. Findings included grade 2 degenerative changes over the medial fem
--- NOTE | 2021-02-04 12:32 | P.PN_ITS ---
[facility] Anesthesia Record Part II Discharge Time: 12:54 Destination: Surgical Day Care (OP Surgery) PACU nurse assessment reviewed?: Yes Patient Condition:: Good Anesthesia Complications:: None Swallowing reflex intact?: Yes Cyanosis?: No Blood Pressure: 127/69 Pulse Rate: 67 Temperature: 97.6 F Mental Status: Alert & Oriented Pain level:: 0 Nausea and/or vomitting:: Nauseated Intake, IV Amount: 0
[2021-02-04 12:33] VITALS: BP 127/69; PULSE 67; TEMP 36.4
== END 2021-02-03 13:40 | disposition home or self-care (01) ==
LOC: OR 07:08
PROVIDERS: PCP Emergency Medicine; Visit Provider Orthopaedic Surgery
PROC: (CPT 29870; principal; 2021-02-03 08:45)
DX: S83.241A Other tear of medial meniscus, current injury, right knee, initial encounter (principal); W01.0XXA Fall on same level from slipping, tripping and stumbling without subsequent striking against object, initial encounter
CPT/HCPCS: 29881; 96374; J2405

== ENCOUNTER → 2021-08-24 16:25 | Outpatient (CLI) | payer OTHER, SELFPAY ==
[2021-08-24 16:37] LABS: Coronavirus 19, PCR Not Detected (NotDetected); Influenza A, PCR Not Detected (NotDetected); Influenza B, PCR Not Detected (NotDetected)
== END ==
PROVIDERS: PCP Internal Medicine Adolescent Medicine; Visit Provider Internal Medicine Adolescent Medicine
DX: Z20.822 Contact with and (suspected) exposure to COVID-19 (principal)
CPT/HCPCS: C9803; U0003; U0005

== ENCOUNTER → 2021-08-25 01:26 | Outpatient (CLI) | payer OTHER, SELFPAY ==
[2021-08-25 01:48] LABS: Strep Scrn Group A (Rapid) Negative (Negative)
== END ==
PROVIDERS: PCP Internal Medicine Adolescent Medicine; Visit Provider Emergency Medicine
DX: J02.9 Acute pharyngitis, unspecified (principal)
CPT/HCPCS: 87430

== ENCOUNTER 2022-01-19 10:02 | Emergency (ER) | payer OTHER, SELFPAY ==
[2022-01-19 10:05] VITALS: BP 121/80; PULSE 91; RESP 19; TEMP 37.1; O2SAT 98; BMI 22.1
[2022-01-19 10:17] LABS: Adenovirus,PCR Not Detected (NotDetected); Bordetella Pertussis Not Detected (NotDetected); Chlamydophila Pneumoniae, PCR Not Detected (NotDetected); Coronavirus 19, PCR Not Detected (NotDetected); Coronavirus 229E Not Detected (NotDetected); Coronavirus NL63 Not Detected (NotDetected); Coronavirus OC43 Not Detected (NotDetected); Coronovirus HKU1,PCR Not Detected (NotDetected); Human Metapneumovirus Not Detected (NotDetected); Influenza A, PCR Not Detected (NotDetected); Influenza AH1, 2009 Not Detected (NotDetected); Influenza AH1, PCR Not Detected (NotDetected); Influenza AH3,PCR Not Detected (NotDetected); Influenza B, PCR Not Detected (NotDetected); Mycoplasma Pneumoniae, PCR Not Detected (NotDetected); Parainfluenza 1, PCR Not Detected (NotDetected); Parainfluenza 2, PCR Not Detected (NotDetected); Parainfluenza 3, PCR Not Detected (NotDetected); Parainfluenza 4, PCR Not Detected (NotDetected); Respiratory Syncytial Virus Not Detected (NotDetected); Rhinovirus/Enterovirus Not Detected (NotDetected)
--- NOTE | 2022-01-19 10:24 | HMH.EDUTC ---
[facility] Disposition Clinical Impression: Close exposure to COVID-19 virus Disposition: Home, Self-Care Condition on Discharge: Good Instructions: COVID-19: Testing and Tracing Additional Instructions: covid swab was sent to lab, call tomorrow for results. self isolate until test results are known to be negative No sign of a bacterial infection. Likely viral. Viruses can take 7-14 days to run their course. Nasal saline and bulb syringe or nose Katlyn to remove nasal drainage to help with nasal congestion. Hard to eat, drink, sleep with nasal congestion so important to keep this cleaned out. Monitor temp. Tylenol or Motrin as needed for pain or fever Encourage fluids, water, Gatorade, Powerade, Pedialyte if infant/toddler/child Warm salt water gargles Warm fluids Sore throat lozenges Sleep elevated Humidifier/vaporizer Follow-up immediately for new or worsening symptoms or no noticeable improvement over the next 48-72 hours. Referrals: Bandar Combs MD [Primary Care Provider] - Time of Disposition: 10:30 Medical Decision Making - Mario Inquiry Pt receiving controlled substance: No Vital Signs: 01/19/22 10:05 Temperature 98.7 F Temperature Source Oral Pulse Rate [Right Brachial] 91 H Respiratory Rate 19 Blood Pressure [Right Arm] 121/80 Blood Pressure Mean [Right Arm] 93 Blood Pressure Source [Right Arm] Automatic Cuff Blood Pressure Position [Right Arm] Sitting 02 Sat by Pulse Oximetry 98 Oxygen Delivery Method Room Air Orders (Tests/Meds): ORDERS Category Date Time Status Full Resp Panel w/COVID ([facility]) Routine Lab 01/19/22 10:10 Received [facility] HPI - General Chief complaint: Urgent [facility] Stated complaint: covid swab Time Seen by Provider: 01/19/22 10:24 Mode of Arrival: Ambulatory Source of Information: Patient Limitations: No Limitations Description of Symptoms (Recalled from Triage Doc. by RN): PATIENT C/O BODY ACHES, CONGESTION, AND COUGH. REPORTS HER HUSBANDS IS POSITIVE FOR COVID HEENT Symptoms (Recalled from RN notes): Yes Resp Symptoms (Recalled from RN notes): Yes Skin Symptoms (Recalled from RN notes): No MS Symptoms (Recalled from RN notes): No Functional Status (Recalled from RN notes): WNL - History of Present Illness Provider Complaint: 36 yr old female presnets for body aches and cough, and kids are post for covid - Related Data Home Medications Medication Instructions Recorded Confirmed ibuprofen 200 mg tablet 200 mg PO Q6H PRN 02/16/21 11/29/21 Previous Rx's Medication Instructions Recorded ondansetron 8 mg disintegrating 8 mg PO Q8H #30 tab 10/05/21 tablet valacyclovir 1 gram tablet 1,000 mg PO BID #60 tab 10/19/21 buspirone 10 mg tablet 10 mg PO BID #60 tab 11/29/21 cariprazine 1.5 mg capsule 1.5 mg PO DAILY #30 cap 11/29/21 Allergies Allergy/AdvReac Type Severity Reaction Status Date / Time hydroxyzine [From Atarax] Allergy Intermediate I-HIVES Verified 11/29/21 16:41 penicillin G [PENICILLIN G] Allergy Intermediate I-HIVES Verified 11/29/21 16:41 - Worker's Comp Is this a Worker's Comp case?: No [facility] History - Hepatitis A Screen Attestation statement:: This patient has been screened for Hepatitis A risk factors. I have reviewed the patient's past medical history: Yes Medical History: Reports:: Depression Denies:: Cancer, Diabetes Mellitus Type 1, Diabetes Mellitus Type 2, Internal Pacemaker, MRSA, Seizures Other Medical History: Denies: Blood Transfusion Reaction Laterality Cases: Left: Arthroscopy Knee Other Surgeries: Yes: Appendectomy, , Other (Left knee arthroscopy). No: Pacemaker Amputation: No Fractures: No - Social History Smoking Status: Former smoker (quit in 2011) Tobacco Type: cigarettes Alcohol Intake: never Alcohol Intake Frequency:: a few times a month Substance Use Type: denies use Occupational Status: employed Housing: house Household Members: spouse, family, children - Psychia
[2022-01-19 10:30] VITALS: BP 121/80; PULSE 91; RESP 19; TEMP 37.1; O2SAT 98
== END 2022-01-19 10:33 | disposition home or self-care (01) ==
PROVIDERS: Emergency Provider Nurse Practitioner Family; PCP Internal Medicine Adolescent Medicine
DX: Z03.89 Encounter for observation for other suspected diseases and conditions ruled out (principal); M79.10 Myalgia, unspecified site; F32.A Depression, unspecified; Z20.822 Contact with and (suspected) exposure to COVID-19; Z79.1 Long term (current) use of non-steroidal anti-inflammatories (NSAID); Z88.0 Allergy status to penicillin; Z88.8 Allergy status to other drugs, medicaments and biological substances; Z87.891 Personal history of nicotine dependence
CPT/HCPCS: 87581; 87632; 87798; 99213; C9803; G0463; U0003; U0005

== ENCOUNTER 2023-02-12 09:18 | Emergency (ER) | payer BC, SELFPAY ==
[2023-02-12 09:19] VITALS: BP 120/77; PULSE 85; RESP 18; TEMP 36.8; O2SAT 100; BMI 24.2
--- NOTE | 2023-02-12 09:36 | EXP.UTC ---
Discharge Plan Disposition Patient Disposition: Home, Self-Care Condition: Good Prescriptions Prescriptions: New azithromycin [Zithromax] 250 mg tablet 250 mg PO UD DOSE PK Qty: 6 0RF Rx Instructions: Take two (2) tablets today, then one (1) tablet days #2 thru #5 benzonatate [benzonatate] 100 mg capsule 100 mg PO TIDP PRN (Reason: Cough) Qty: 30 0RF methylprednisolone 4 mg Tablets,Dose Pack 4 mg PO DIRECTED Qty: 21 0RF triamcinolone acetonide 0.1 % cream 1 applic topical BID PRN (Reason: itching) Qty: 30 0RF No Action ibuprofen 200 mg tablet 200 mg PO Q6H PRN buspirone 10 mg tablet 10 mg PO BID Qty: 60 1RF Vraylar 3 mg capsule 3 mg PO DAILY Qty: 30 1RF ondansetron 8 mg tablet,disintegrating 8 mg PO Q8H Qty: 30 0RF valacyclovir [Valtrex] 1 gram tablet 1,000 mg PO BID Qty: 60 2RF ondansetron 8 mg tablet,disintegrating 8 mg PO Q8H PRN (Reason: nausea and vomiting) Qty: 30 0RF Referrals Follow up/Referrals: Bandar Combs MD [Primary Care Provider] - See instructions Activity Restrictions/Add. Instructions Additional Instructions/Restrictions: Drink plenty of fluids. Take tylenol or ibuprofen for pain or fever. Take the medications as directed. Follow up with your regular doctor. GO TO THE ER FOR ANY WORSENING SYMPTOMS Clinical Impressions Clinical Impression: Acute bronchitis, Sinusitis Stand Alone Forms Stand Alone Forms: Work/School Release Instructions Patient Instructions: Sinusitis, DI for Sinusitis Discharge ED Provider: Roberto Costa [facility] General Stated complaint: congestion, cough, h/a Mode of Arrival: Ambulatory Source of Information: Patient Limitations: No Limitations Time Seen by Provider: 02/12/23 09:36 Description of Symptoms (Recalled from Triage Doc. by RN): Patient reports chest congestion, cough, nasal congestion, fever for a couple of days. HEENT Symptoms (Recalled from RN notes): Yes Resp Symptoms (Recalled from RN notes): No Skin Symptoms (Recalled from RN notes): No MS Symptoms (Recalled from RN notes): No Functional Status (Recalled from RN notes): wnl History of Present Illness Provider Complaint: She states that for the past 4 days she has had sinus congestion and chest congestion. She has been running a low grade fever also. She has poison die[place] rash on her left leg also. Related Data Home Medications Medication Instructions Recorded Confirmed ibuprofen 200 mg tablet 200 mg PO Q6H PRN 02/16/21 01/26/22 Previous Rx's Medication Instructions Recorded ondansetron 8 mg disintegrating 8 mg PO Q8H nausea and vomiting 10/05/21 tablet #30 tabs valacyclovir 1 gram tablet 1,000 mg PO BID #60 tabs 10/19/21 (Valtrex) buspirone 10 mg tablet 10 mg PO BID #60 tabs 01/26/22 cariprazine 3 mg capsule (Vraylar) 3 mg PO DAILY #30 caps 01/26/22 ondansetron 8 mg disintegrating 8 mg PO Q8H PRN nausea and 02/22/22 tablet vomiting #30 tabs azithromycin 250 mg tablet 250 mg PO UD DOSE PK #6 tabs 02/12/23 (Zithromax) benzonatate 100 mg capsule 100 mg PO TIDP PRN Cough #30 caps 02/12/23 methylprednisolone 4 mg tablets in 4 mg PO DIRECTED #21 tabs 02/12/23 a dose pack triamcinolone acetonide 0.1 % 1 applic topical BID PRN itching 02/12/23 topical cream #30 grams Allergies Allergy/AdvReac Type Severity Reaction Status Date / Time hydroxyzine [From Atarax] Allergy Intermediate I-HIVES Verified 01/26/22 10:02 penicillin G [PENICILLIN G] Allergy Intermediate I-HIVES Verified 01/26/22 10:02 Worker's Comp Is this a Worker's Comp case?: No [facility] Disclaimer: The information contained in this section may have been updated after the patient was seen, as this information can be updated by other users. Social History Smoking Status: Former smoker (quit in 2011) alcohol intake: never substance use type: denies use current occupational status: employed Travel in the last 8 weeks: Non
[2023-02-12 09:41] VITALS: BP 120/77; PULSE 85; RESP 18; TEMP 36.8; O2SAT 100
== END 2023-02-12 09:42 | disposition home or self-care (01) ==
PROVIDERS: Emergency Provider Nurse Practitioner Family; PCP Internal Medicine Adolescent Medicine
DX: J20.9 Acute bronchitis, unspecified (principal); J01.90 Acute sinusitis, unspecified; Z87.891 Personal history of nicotine dependence
CPT/HCPCS: 99212; 99214; G0463

== ENCOUNTER 2023-03-22 17:15 | Emergency (ER) | payer BC, SELFPAY ==
[2023-03-22 17:15] VITALS: BP 134/83; PULSE 94; RESP 16; TEMP 36.7; O2SAT 98; BMI 24.2
--- NOTE | 2023-03-22 17:19 | EXP.UTC ---
Discharge Plan Disposition Patient Disposition: Home, Self-Care Condition: Good Prescriptions Prescriptions: New triamcinolone acetonide 0.1 % cream 1 applic topical BID PRN (Reason: itching) Qty: 30 0RF methylprednisolone 4 mg Tablets,Dose Pack 4 mg PO DIRECTED Qty: 21 0RF permethrin 5 % cream 1 applic topical Q14D Qty: 60 0RF Rx Instructions: apply second treatment 14 days after first treatment if symptoms remain No Action ibuprofen 200 mg tablet 200 mg PO Q6H PRN buspirone 10 mg tablet 10 mg PO BID Qty: 60 1RF Vraylar 3 mg capsule 3 mg PO DAILY Qty: 30 1RF ondansetron 8 mg tablet,disintegrating 8 mg PO Q8H Qty: 30 0RF valacyclovir [Valtrex] 1 gram tablet 1,000 mg PO BID Qty: 60 2RF ondansetron 8 mg tablet,disintegrating 8 mg PO Q8H PRN (Reason: nausea and vomiting) Qty: 30 0RF azithromycin [Zithromax] 250 mg tablet 250 mg PO UD DOSE PK Qty: 6 0RF Rx Instructions: Take two (2) tablets today, then one (1) tablet days #2 thru #5 benzonatate [benzonatate] 100 mg capsule 100 mg PO TIDP PRN (Reason: Cough) Qty: 30 0RF methylprednisolone 4 mg Tablets,Dose Pack 4 mg PO DIRECTED Qty: 21 0RF triamcinolone acetonide 0.1 % cream 1 applic topical BID PRN (Reason: itching) Qty: 30 0RF Referrals Follow up/Referrals: Abigail Yo MD [Referring] - See instructions Bandar Combs MD [Primary Care Provider] - See instructions Activity Restrictions/Add. Instructions Additional Instructions/Restrictions: Try to identify and avoid contact with the offending substance. Don't start the oral steroids until tomorrow. Don't put the topical steroids (triamcinolone) on your face or your groin. Follow up with your regular doctor. GO TO THE ER FOR ANY WORSENING SYMPTOMS OR CONCERNS I put in a referral to a staff pharmacist hospital (Dr. Yo). If your symptoms are not improving, please call her and get an appointment to be seen by her. Clinical Impressions Clinical Impression: Contact dermatitis Instructions Patient Instructions: Contact Dermatitis, DI for Contact Dermatitis Discharge ED Provider: Roberto Costa [facility] [place] HPI General Stated complaint: rash on RT leg Time Seen by Provider: 03/22/23 17:18 History of Present Illness Provider Complaint: She states that for the past 2 weeks she has had an itchy rash on her right lower leg and left arm. Related Data Home Medications Medication Instructions Recorded Confirmed ibuprofen 200 mg tablet 200 mg PO Q6H PRN 02/16/21 01/26/22 Previous Rx's Medication Instructions Recorded ondansetron 8 mg disintegrating 8 mg PO Q8H nausea and vomiting 10/05/21 tablet #30 tabs valacyclovir 1 gram tablet 1,000 mg PO BID #60 tabs 10/19/21 (Valtrex) buspirone 10 mg tablet 10 mg PO BID #60 tabs 01/26/22 cariprazine 3 mg capsule (Vraylar) 3 mg PO DAILY #30 caps 01/26/22 ondansetron 8 mg disintegrating 8 mg PO Q8H PRN nausea and 02/22/22 tablet vomiting #30 tabs azithromycin 250 mg tablet 250 mg PO UD DOSE PK #6 tabs 02/12/23 (Zithromax) benzonatate 100 mg capsule 100 mg PO TIDP PRN Cough #30 caps 02/12/23 methylprednisolone 4 mg tablets in 4 mg PO DIRECTED #21 tabs 02/12/23 a dose pack triamcinolone acetonide 0.1 % 1 applic topical BID PRN itching 02/12/23 topical cream #30 grams methylprednisolone 4 mg tablets in 4 mg PO DIRECTED #21 tabs 03/22/23 a dose pack permethrin 5 % topical cream 1 applic topical Q14D 2 doses #60 03/22/23 grams triamcinolone acetonide 0.1 % 1 applic topical BID PRN itching 03/22/23 topical cream #30 grams Allergies Allergy/AdvReac Type Severity Reaction Status Date / Time hydroxyzine [From Atarax] Allergy Intermediate I-HIVES Verified 01/26/22 10:02 penicillin G [PENICILLIN G] Allergy Intermediate I-HIVES Verified 01/26/22 10:02 [facility] Disclaimer: The information contained in this section may have been updated after the patient
[2023-03-22 18:18] VITALS: BP 134/83; PULSE 94; RESP 16; TEMP 36.7; O2SAT 98
== END 2023-03-22 18:19 | disposition home or self-care (01) ==
PROVIDERS: Emergency Provider Nurse Practitioner Family; PCP Internal Medicine Adolescent Medicine
DX: L25.9 Unspecified contact dermatitis, unspecified cause (principal); Z87.891 Personal history of nicotine dependence
CPT/HCPCS: 96372; 99212; 99214; G0463

== ENCOUNTER 2023-08-08 00:42 | Emergency (ER) | payer BC, SELFPAY ==
[2023-08-08 00:44] VITALS: BP 133/86; PULSE 78; RESP 18; TEMP 36.5; O2SAT 99; BMI 23.3
--- NOTE | 2023-08-08 00:51 | PC.NURSE ---
in room talking with patient at this time.
[2023-08-08 01:02] LABS: Microscopic, Urine URINE MICROSCOPIC (MICROSCOPIC)
[2023-08-08 01:03] LABS: Appearance,Urine CLEAR (Clear); Bilirubin,Urine Negative (Negative); Blood, Urine Negative (Negative); Color,Urine YELLOW (Yellow); Glucose,Urine (UA) Negative (Negative); Ketones,Urine Negative (Negative); Leukocyte Esterase,Urine Negative (Negative); Nitrate,Urine Negative (Negative); Protein,Urine Negative (Negative); Specific Gravity, Urine 1.015 (1.005-1.030); Urobilinogen,Urine 0.2 EU/dl (0.2)
[2023-08-08] MEDS: ONDANSETRON 4MG/2ML VIAL 4 MG IV (01:06)
[2023-08-08] MEDS: MORPHINE 4MG/ML SYRINGE 4 MG IV (01:07)
[2023-08-08 01:10] LABS: Basophils # 0.1 K/mm3 (0-0.2); Basophils % 0.7 % (0.1-2.0); Eosinophils # 0.4 K/mm3 (0.0-0.4); Hematocrit 45.4 % (37.0-47.0); Hemoglobin 15.2 g/dL (12.2-16.2); Lymphocytes # 2.5 K/mm3 (0.7-4.5); Lymphocytes % 24.7 % (10-50); Mean Corpuscular HGB Conc 33.5 g/dL (31.8-35.4); Mean Corpuscular Hemoglobin 31.1 pg (27.0-31.2); Mean Corpuscular Volume 92.8 fl (81-99); Mean Platelet Volume 8.8 fl (7.4-10.4); Monocytes # 0.6 K/mm3 (0.1-1.0); Monocytes % 5.9 % (1.7-9.3); Neutrophils # 6.5 K/mm3 (1.8-7.8); Neutrophils % 64.7 % (37.0-80.0); Platelet Count 277 K/mm3 (142-424); Red Blood Count 4.88 M/mm3 (4.20-5.40); Red Cell Distribution Width 13.7 % (11.5-17.5); White Blood Count 10.1 K/mm3 (4.8-10.8)
[2023-08-08 01:14] LABS: Chloride 106 mmol/L (98-107); Potassium 3.4 mmoL/L (3.5-5.1); Sodium 137 mmol/L (136-145)
[2023-08-08 01:15] LABS: HCG Qualitative, Serum Negative (Negative)
[2023-08-08 01:16] LABS: Alanine Aminotransferase 36 U/L (12-78); Alkaline Phosphatase 64 U/L (38-126); Anion Gap 12.4 mEq/L (5-15); Aspartate Amino Transferase 38 U/L (14-36); Bilirubin,Total 0.7 mg/dl (0.2-1.3); Blood Urea Nitrogen 9 mg/dl (7-17); Carbon Dioxide 22 mmol/L (22.0-30.0); Creatinine Clearance Estimated 116 mL/min (50-200); Estimated Glomerular Filt Rate 95 ml/min (>60); GFR (African American) 115 ML/MIN (>60); Lactic Acid 1.2 mmol/L (0.7-2.1)
--- NOTE | 2023-08-08 01:16 | HMH.EDGENADL ---
Discharge Plan Disposition Patient Disposition: Home, Self-Care Condition: Good Prescriptions Prescriptions: No Action Mirena 21 mcg/24 hours (8 yrs) 52 mg intrauterine device intrauterine metronidazole 500 mg tablet 500 mg PO BID 7 Days Qty: 14 0RF valacyclovir [Valtrex] 1 gram tablet 1,000 mg PO BID Qty: 60 2RF Referrals Follow up/Referrals: Provider,Referral, MD [Primary Care Provider] - See instructions Activity Restrictions/Add. Instructions Additional Instructions/Restrictions: You have been evaluated in the ED for your complaints. You may follow-up with your PCP in the next 3 to 5 days. Please return to ED for any new or worsening symptoms. As discussed, please follow-up with your [facility]ER . Please take ibuprofen and Tylenol as needed for pain. Clinical Impressions Clinical Impression: Dyspareunia, Hemorrhagic cyst of right ovary Instructions Patient Instructions: DI for Acute Abdominal Pain Discharge ED Provider: Luke Balderas Adult HPI General Chief complaint: Abdominal Pain Stated complaint: abdominal pain Time Seen by Provider: 08/08/23 00:49 Mode of Arrival: Ambulatory Source of Information: Patient Limitations: No Limitations Description of Symptoms (Recalled from ER Triage Doc. by RN): Patient arrives with chief complaint of severe suprapubic pain that started approximately 11pm shortly after vaginal intercourse. Patient reports no pain immediately after, but after lying down pain came suddenly, 10/10, sharp, wavelike that radiated through to her back. Patient has tenderness to the suprapubic area, pain is currently 6/10. Patient denies vaginal bleeding, endorses nausea without vomiting. History of Present Illness HPI narrative: 37-year-old female with past medical history significant for endometriosis, anxiety, bipolar disorder, presents today for evaluation concerning suprapubic pain that began around 11 PM after she had had sexual intercourse with her spouse. Rates her pain as a 10 out of 10 and sharp in characterization. Denies any vaginal bleeding, discharge. Does report nausea without emesis. Denies any fevers, chills, chest pain, shortness of breath. No further complaints on assessment. Related Data Home Medications Medication Instructions Recorded Confirmed levonorgestrel 21 mcg/24 hours (8 intrauterine 06/22/23 07/05/23 yrs) 52 mg intrauterine device (Mirena) Previous Rx's Medication Instructions Recorded valacyclovir 1 gram tablet 1,000 mg PO BID #60 tabs 10/19/21 (Valtrex) metronidazole 500 mg tablet 500 mg PO BID 7 days #14 tabs 06/22/23 Allergies Allergy/AdvReac Type Severity Reaction Status Date / Time hydroxyzine [From Atarax] Allergy Intermediate I-HIVES Verified 07/05/23 14:03 penicillin G [PENICILLIN G] Allergy Intermediate I-HIVES Verified 07/05/23 14:03 [facility] Disclaimer: The information contained in this section may have been updated after the patient was seen, as this information can be updated by other users. 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: Yes ROS Obtained: Yes All systems reviewed & no additional complaints except as documented Physical Exam General General appearance: alert and in no apparent distress Head Head exam: atraumatic and normocephalic Eye Eye exam: Present normal appearance, PERRL and EOMI ENT ENT exam: Present normal oropharynx and mucous membranes moist Neck Neck exam: Present full ROM; Absent meningismus Respiratory Respiratory exam: Absent respiratory distress, wheezes, stridor or accessory muscle use Cardiovascular Cardiovascular exam: Present normal rhythm Abdominal Exam Abdominal exam: Present soft; Absent distention, tenderness, guarding, rebound or rigidity Neurological Exam Neurological exam: Present alert, oriented X3 and CN II-XII intact; Absent motor sensory deficit Psychiatric Psychiatric exam: Present normal affect and normal mood Skin Skin exam: Present warm and dry Medical Decision Making Medical Records Medical records reviewed: Yes I reviewed the patient's medical records. Mario Inquiry Pt receiving controlled substance: No Mario was queried for this patient: No Vital Signs: 08/08/23 00:44 Temperature 97.7 F Temperature Source Oral Pulse Rate [Left Radial] 78 Respiratory Rate 18 Blood Pressure [Right Arm] 133/86 Blood Pressure Mean [Right Arm] 101 Blood Pressure Source [Right Arm] Automatic Cuff Blood Pressure Position [Right Arm] Sitting 02 Sat by Pulse Oximetry 99 Oxygen Delivery Method Room Air Lab Data Lab Results 08/08/23 00:49: Urine Color Yellow, Urine Appearance Clear, Urine pH 6.0, Ur Specific [place] 1.015, Urine Protein Negative, Urine Glucose (UA) Negative, Urine Ketones Negative, Urine Blood Negative, Urine Nitrate Negative, Urine Bilirubin Negative, Urine Urobilinogen 0.2, Ur Leukocyte Esterase Negative, Urine RBC None, Urine WBC None, Ur Squamous Epith Cells Occasional, Urine Bacteria Trace 08/08/23 00:58: WBC 10.1, RBC 4.88, Hgb 15.2, Hct 45.4, MCV 92.8, MCH 31.1, MCHC 33.5, RDW 13.7, Plt Count 277, MPV 8.8, Neut % (Auto) 64.7, Lymph % (Auto) 24.7, [place] % (Auto) 5.9, Eos % (Auto) 4.0, Baso % (Auto) 0.7, Neut # (Auto) 6.5, Lymph # (Auto) 2.5, [place] # (Auto) 0.6, Eos # (Auto) 0.4, Baso # (Auto) 0.1, Sodium 137, Potassium 3.4 L, Chloride 106, Carbon Dioxide 22, Anion Gap 12.4, BUN 9, Creatinine 0.70, Estimated Creat Clear 116, Estimated GFR 95, Est GFR ( Amer) 115, Glucose 103 H, Lactate 1.2, Calcium 8.4, Total Bilirubin 0.7, AST 38 H, ALT 36, Alkaline Phosphatase 64, Total Protein 6.9, Albumin 4.3, Globulin 2.6, Albumin/Globulin Ratio 1.7, Lipase 78, Serum HCG, Qual Negative 08/08/23 00:58 08/08/23 00:58 Orders (Tests/Meds): ED MEDICATIONS Generic Name Dose Route Start Last Admin Trade Name Freq PRN Reason Stop Dose Admin Sodium Chloride 10 ml 08/08/23 02:20 08/08/23 02:20 Sodium Chloride 0.9% 10ml Syr (Rad Only) IV 09/07/23 02:19 10 ml NEEDED PRN Administration Maintain IV Site Discontinued Medications Generic Name Dose Route Start Last Admin Trade Name Adama PRN Reason Stop Dose Admin Acetaminophen 1,000 mg 08/08/23 03:56 08/08/23 04:05 Acetaminophen 500mg Tab PO 08/08/23 03:57 1,000 mg ONCE ONE Administration Ibuprofen 800 mg 08/08/23 03:56 08/08/23 04:05 Ibuprofen 400 Mg Tablet PO 08/08/23 03:57 800 mg ONCE ONE Administration Iopamidol 75 ml 08/08/23 02:20 08/08/23 02:20 Iopamidol-370 (76%);100ml Bottle IV 08/08/23 02:21 75 ml ONCE ONE Administration Morphine Sulfate 4 mg 08/08/23 00:56 08/08/23 01:07 Morphine 4mg/Ml Syringe IV 08/08/23 00:57 4 mg ONCE ONE Administration Ondansetron HCl 4 mg 08/08/23 00:56 08/08/23 01:06 Ondansetron 4mg/2ml Vial IV 08/08/23 00:57 4 mg ONCE ONE Administration ORDERS Category Date Time Status CT abdomen pelvis w con Stat Cat Scan 08/08/23 02:01 Completed Complete Blood Count Auto Diff Stat Lab 08/08/23 00:58 Completed Comprehensive Metabolic Panel Stat Lab 08/08/23 00:58 Completed HCG Qualitative, Serum Stat Lab 08/08/23 00:58 Completed Lactic Acid Stat Lab 08/08/23 00:58 Completed Lipase Stat Lab 08/08/23 00:58 Completed Urinalysis and Microscopic Stat Lab 08/08/23 00:49 Completed Medical Decision Narrative: 37-year-old female with past medical history significant for endometriosis, anxiety, bipolar disorder, presents today for evaluation concerning suprapubic pain that began around 11 PM after she had had sexual intercourse with her spouse. On assessment, the patient is hemodynamically stable and in no acute distress. Afebrile. The abdomen was soft and nondistended however he was tender in the suprapubic region. Minimal tenderness in the right lower and left lower quadrants. Differential diagnoses include but limited to dyspareunia, UTI, vaginal laceration, torsion, among others. Patient's lab workup today has been nonactionable. I also performed an external vaginal exam with editor managing newspaper present and there were no lacerations noted no other external signs of trauma. She did have a cyst along the inner aspect of the labia on the right. CT abdomen pelvis with peripherally enhancing right adnexal hypodensity likely representing hemorrhagic follicle. On reassessment the patient lacy medically stable and in no acute distress. I discussed ED workup results with patient and current plan to discharge home with supportive care measures. Her pain is well-controlled at this time. She has an [facility] CRUISER that she will follow-up with. I did instruct her concerning Tylenol referral for use at home if needed. Verbalized understanding and agreed with plan. Provided with return ED precautions. Subsequently discharged home in medically stable and in no acute distress. Critical Care Critical Care Time Critical Care Time: No
[2023-08-08 01:17] LABS: Albumin Level 4.3 g/dl (3.5-5.0); Albumin/Globulin Ratio 1.7 (1.1-1.8); Calcium 8.4 mg/dl (8.4-10.2); Globulin 2.6 g/dL (1.3-3.2); Glucose 103 mg/dl (74-100); Lipase 78 U/L (23-300); Total Protein,Serum 6.9 g/dl (6.3-8.2)
[2023-08-08 01:20] LABS: Bacteria,Urine Trace /lpf; Squamous Epithelial Cell,Urine Occasional #/hpf (0-5)
--- NOTE | 2023-08-08 02:01 | CT_ITS ---
PROCEDURE INFORMATION: Exam: CT Abdomen And Pelvis With Contrast Exam date and time: 08/08/2023 2:14 AM Age: 37 years old Clinical indication: Abdominal pain; Additional info: Lower abd pain TECHNIQUE: Imaging protocol: Computed tomography of the abdomen and pelvis with contrast. Radiation optimization: All CT scans at this facility use at least one of these dose optimization techniques: automated exposure control; mA and/or kV adjustment per patient size (includes targeted exams where dose is matched to clinical indication); or iterative reconstruction. Contrast material: ISOVUE; Contrast volume: 75 ml; Contrast route: IV; COMPARISON: US TRANSVAGINAL 06/21/2020 7:51 AM FINDINGS: Liver: Normal. No mass. Gallbladder and bile ducts: Normal. No calcified stones. No ductal dilation. Pancreas: Normal. No ductal dilation. Spleen: Normal. No splenomegaly. Adrenal glands: Normal. No mass. Kidneys and ureters: Normal. No hydronephrosis. Stomach and bowel: Moderate retained stool seen throughout the colon. Appendix: No evidence of appendicitis. Intraperitoneal space: Some dependent free fluid is seen in the cul-de-sac Vasculature: Unremarkable. No abdominal aortic aneurysm. Lymph nodes: Unremarkable. No enlarged lymph nodes. Urinary bladder: Unremarkable as visualized. Reproductive: There is a peripherally enhancing 3.2 cm hypodense lesion in the right adnexa likely hemorrhagic follicle. Bones/joints: Unremarkable. No acute fracture. Soft tissues: Unremarkable. IMPRESSION: Prominent peripherally enhancing right adnexal hypodensity likely hemorrhagic follicle.
[2023-08-08] MEDS: IOPAMIDOL-370 (76%);100ML BOTTLE 75 ML IV (02:20)
[2023-08-08] MEDS: SODIUM CHLORIDE 0.9% 10ML SYR (RAD ONLY) 10 ML IV (02:20)
--- NOTE | 2023-08-08 02:33 | PC.NURSE ---
Pt reports decrease in pain, rates 3/10, reports intermittent shooting sharp pain in rectum. awaiting CT scan results
--- NOTE | 2023-08-08 03:55 | PC.NURSE ---
called and spoke with santi who is going to check with vrad re: ct radiology reading
[2023-08-08] MEDS: IBUPROFEN 400 MG TABLET 800 MG PO (04:05)
[2023-08-08] MEDS: ACETAMINOPHEN 500MG TAB 1000 MG PO (04:05)
--- NOTE | 2023-08-08 04:06 | PC.NURSE ---
Pt resting, continues to await CT results.Denies any new complaints
[2023-08-08 04:21] VITALS: BP 109/71; PULSE 63; RESP 16; TEMP 36.7; O2SAT 98
== END 2023-08-08 04:24 | disposition home or self-care (01) ==
PROVIDERS: Emergency Provider Emergency Medicine
DX: R10.2 Pelvic and perineal pain (principal); N94.10 Unspecified dyspareunia; N83.201 Unspecified ovarian cyst, right side; F17.290 Nicotine dependence, other tobacco product, uncomplicated
CPT/HCPCS: 74177; 80053; 81001; 83605; 83690; 84703; 85025; 96374; 96375; 99285; J2405; Q9967

== ENCOUNTER 2023-11-26 13:02 | Outpatient (CLI) | payer BC, SELFPAY ==
--- NOTE | 2023-11-26 13:09 | US_ITS ---
FINAL REPORT TECHNIQUE: Real-time grayscale and color ultrasound of the soft tissues of the neck was performed. CLINICAL HISTORY: ENLARGED THYROID PERSISTENT FEVER COMPARISON: None FINDINGS: Ultrasound images of the area of concern in the bilateral neck were obtained. Color Doppler images were submitted. There are small cystic areas in the right submandibular gland and right parotid gland measuring up to 3 mm. These probably represent benign epithelial cysts. IMPRESSION: Probable benign epithelial cysts. Reviewed, Interpreted and Dictated by Manav Campbell MD Transcribed by Nohemi Shearer Authenticated and [facility]
--- NOTE | 2023-11-26 13:09 | US_ITS ---
FINAL REPORT TECHNIQUE: Real-time grayscale and color ultrasound of the thyroid was performed. CLINICAL HISTORY: ENLARGED THYROID, PERSISTENT FEVER COMPARISON: None FINDINGS: The thyroid gland measures 51 x 8 x 19 mm on the right and 15 x 10 x 15 mm on the left. The isthmus measures 2 mm. The parenchyma is unremarkable . Nodules: There are multiple small anechoic structures in both lobes of the thyroid, largest measuring up to 5 mm on the right. These probably represent colloid cysts. IMPRESSION: Probable colloid cysts. Reviewed, Interpreted and Dictated by Manav Campbell MD Transcribed by Nohemi Shearer Authenticated and [facility]
== END 2023-11-26 23:59 | disposition home or self-care (01) ==
LOC: RAD 13:03
PROVIDERS: PCP Physician Assistant; Visit Provider Physician Assistant
DX: E04.9 Nontoxic goiter, unspecified (principal); R50.9 Fever, unspecified
CPT/HCPCS: 76536

== ENCOUNTER 2024-05-23 10:53 | Emergency (ER) | payer OTHER, SELFPAY ==
[2024-05-23 11:03] VITALS: BP 116/77; PULSE 76; RESP 20; TEMP 36.6; O2SAT 99; BMI 20.9
--- NOTE | 2024-05-23 11:19 | ED_ITS ---
Discharge Plan Disposition Patient Disposition: Home, Self-Care Condition: Good Prescriptions Prescriptions: No Action buspirone 10 mg tablet 10 mg PO BID Qty: 60 1RF Vraylar 1.5 mg capsule 1.5 mg PO DAILY Qty: 30 1RF Mirena 21 mcg/24 hours (8 yrs) 52 mg intrauterine device intrauterine metronidazole 500 mg tablet 500 mg PO BID 7 Days Qty: 14 0RF valacyclovir [Valtrex] 1 gram tablet 1,000 mg PO BID Qty: 60 2RF Referrals Follow up/Referrals: Sydney Pugh APRN [Primary Care Provider] - See instructions Activity Restrictions/Add. Instructions Additional Instructions/Restrictions: Drink plenty of fluids. Take tylenol or ibuprofen for pain or fever. Take the medications as directed. Follow up with your regular doctor. GO TO THE ER FOR ANY WORSENING SYMPTOMS Clinical Impressions Clinical Impression: Dysuria Instructions Patient Instructions: DI for Dysuria -- Adult Print Language Print Language: Bulgarian Discharge ED Provider: Roberto Costa [facility] General Stated complaint: sti screening Mode of Arrival: Ambulatory Source of Information: Patient Time Seen by Provider: 05/23/24 11:19 Description of Symptoms (Recalled from Triage Doc. by RN): STI TESTING, POSSIBLE EXPOSURE HEENT Symptoms (Recalled from RN notes): No Resp Symptoms (Recalled from RN notes): No Skin Symptoms (Recalled from RN notes): No MS Symptoms (Recalled from RN notes): No Functional Status (Recalled from RN notes): WNL Related Data Home Medications ?Medication ?Instructions ?Recorded ?Confirmed levonorgestrel 21 mcg/24 hr (up to intrauterine 06/22/23 03/04/24 8 years) 52 mg intrauterine device (Mirena) Previous Rx's ?Medication ?Instructions ?Recorded valacyclovir 1 gram tablet 1,000 mg PO BID #60 tabs 10/19/21 (Valtrex) metronidazole 500 mg tablet 500 mg PO BID 7 days #14 tabs 06/22/23 buspirone 10 mg tablet 10 mg PO BID #60 tabs 02/19/24 cariprazine 1.5 mg capsule 1.5 mg PO DAILY #30 caps 02/19/24 (Vraylar) Allergies Allergy/AdvReac Type Severity Reaction Status Date / Time hydroxyzine [From Atarax] Allergy Intermediate I-HIVES Verified 03/04/24 14:21 penicillin G [PENICILLIN G] Allergy Intermediate I-HIVES Verified 03/04/24 14:21 Worker's Comp Is this a Worker's Comp case?: No [facility] Disclaimer: The information contained in this section may have been updated after the patient was seen, as this information can be updated by other users. 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 ROS Obtained: Yes All systems reviewed & no additional complaints except as documented Constitutional Constitutional: Denies chills and Denies fever(s) Eyes Eyes: Denies eye discharge ENT Ears, Nose, Mouth, and Throat: Denies dizziness, Denies otalgia and Denies sore throat Cardiovascular Cardiovascular: Denies chest pain Respiratory Respiratory: Denies shortness of breath, Denies chest congestion, Denies cough, Denies stridor and Denies wheezing Gastrointestinal Gastrointestingal: Denies nausea or vomiting Musculoskeletal Musculoskeletal: Reports system reviewed and no additional complaints, except as documented and Denies arthralgias Integumentary/Breasts Skin/Breast: Denies rash Neurologic Neurologic: Denies dizziness and Denies paresthesias Allergic/Immunologic Allergic/Immunologic: Denies wheezing Physical Exam General General appearance: alert and in no apparent distress Head Head exam: atraumatic, normocephalic and normal inspection Eye Eye exam: Present normal appearance, PERRL and EOMI ENT ENT exam: Present normal exam, normal oropharynx, mucous membranes moist, TM's normal bilaterally and normal external ear exam Neck Neck exam: Present normal inspection, full ROM and trachea midline; Absent meningismus or lymphadenopathy Chest Chest inspection: Present normal inspection and symmetric chest wall rise; Absent tenderness Respiratory Respiratory exam: Present normal lung sounds bilaterally; Absent respiratory distress Cardiovascular Cardiovascular exam: Present regular rate and normal rhythm; Absent JVD Abdominal Exam Abdominal exam: Present soft and normal bowel sounds; Absent distention, tenderness or guarding Extremities Exam Extremities exam: Present normal inspection, full ROM and normal capillary refill; Absent calf tenderness Back Exam Back exam: Present normal inspection; Absent tenderness Neurological Exam Neurological exam: Present alert and oriented X3 Psychiatric Psychiatric exam: Present normal affect and normal mood Skin Skin exam: Present warm, dry, intact and normal color Lymphatic Lymphatic Findings: no adenopathy Medical Decision Making Medical Records Medical records reviewed: No I reviewed the patient's medical records. Screening: Per USPSTF and CDC recommendations, given the prevalence of disease in our region, it is our hospital?s policy to screen for HIV and viral Hepatitis for all patients aged 18 and over and those with ongoing risk factors. Mario Inquiry Pt receiving controlled substance: No Vital Signs: 05/23/24 11:03 Temperature 97.9 F Temperature Source Oral Pulse Rate [Left Brachial] 76 Respiratory Rate 20 Blood Pressure [Left Arm] 116/77 Blood Pressure Mean [Left Arm] 90 02 Sat by Pulse Oximetry 99 Lab Data Lab results reviewed: Yes I reviewed the patient's lab results. Orders (Tests/Meds): ORDERS Category Date Time Status Urine Culture Stat Micro 05/23/24 11:01 Received
[2024-05-23 11:29] VITALS: BP 116/77; PULSE 76; RESP 20; TEMP 36.6
[2024-05-26 18:11] LABS: Neisseria gonorrhoeae, NAA Negative (Negative)
== END 2024-05-23 11:30 | disposition home or self-care (01) ==
PROVIDERS: Emergency Provider Nurse Practitioner Family; PCP Nurse Practitioner Family
DX: R30.0 Dysuria (principal)
CPT/HCPCS: 87086; 87491; 87591; 99213; G0381